=== PATIENT | male | born 1990 | race Caucasian/White ===

== ENCOUNTER 2024-11-19 21:29 | Emergency (ER) | payer SELFPAY ==
[2024-11-19 21:44] VITALS: BP 129/88; PULSE 99; RESP 20; TEMP 98.5; BMI 29.7
[2024-11-20 01:22] LABS: ABSOLUTE IMMATURE GRANULOCYTES 0.03 x10^3/uL (0.0-0.031); BASOPHILS # 0.05 x10^3/uL (0.01-0.08); EOSINOPHIL % 1.5 % (0.8-7.0); EOSINOPHILS # 0.13 x10^3/uL (0.04-0.54); MCHC 31.8 g/dl (32.3-36.5); MEAN CELL VOLUME 89.0 fl (79.0-92.2); MEAN PLT VOLUME 11.8 fl (9.4-12.4); MONOCYTE # 0.73 x10^3/uL (0.30-0.82); MONOCYTE % 8.5 % (5.3-12.2); RDW 13.3 % (12.0-15.6)
[2024-11-20 01:44] LABS: INR 1.15 (0.83-1.09); PROTHROMBIN TIME (PATIENT) 12.6 SEC (9.7-13.0)
[2024-11-20 01:46] LABS: ACTIVATED PTT 33.2 SECONDS (25.2-36.5)
[2024-11-20 02:55] LABS: HCV DIAGNOSTIC IN-HOUSE W/RFLX NON-REACTIVE (NONREACTIVE)
[2024-11-20 02:56] LABS: HIV INTERPRETATION NEGATIVE (NEGATIVE)
[2024-11-20 03:39] LABS: CREATININE 1.1 mg/dL (0.55-1.3)
[2024-11-20 03:40] LABS: SGOT/AST 27.0 U/L (15-37); SGPT/ALT 41.0 U/L (13-61)
[2024-11-20 03:41] LABS: CO2 24.0 mmol/L (21-32); GLUCOSE,RANDOM 89.0 mg/dL (74-106)
[2024-11-20 03:47] LABS: ALK PHOS 85.0 U/L (45-117); TOT PROT 7.7 g/dl (6.4-8.2)
== END 2024-11-20 04:14 | disposition home or self-care (01) ==
LOC: JER 21:29
DX: K62.5 Hemorrhage of anus and rectum (principal); R42 Dizziness and giddiness
CPT/HCPCS: 36415; 80053; 83605; 83690; 85025; 85610; 85730; 86803; 87389; 99283-25